=== PATIENT | female | born 1990 | race African-American/Black ===

== ENCOUNTER 2020-11-24 14:55 | Emergency (ER) | payer OTHER ==
[~2020-11-24] VITALS: Ht 172.7 cm; Wt 125.0 kg
[~2020-11-24 14:55] MED LIST: FERR325T23; LISINOPRIL PO
[2020-11-24 16:49] VITALS: BP 144/80
== END 2020-11-24 16:53 | disposition home or self-care (01) ==
LOC: ER 14:55
DX: R43.9 Unspecified disturbances of smell and taste (principal); Z20.822 Contact with and (suspected) exposure to COVID-19; E66.01 Morbid (severe) obesity due to excess calories; Z68.41 Body mass index [BMI] 40.0-44.9, adult
CPT/HCPCS: 99283; C9803; U0003